=== PATIENT | male | born 1960 | race African-American/Black ===

== ENCOUNTER 2022-11-03 14:26 | Outpatient (CLI) | payer OTHER | END 2022-11-03 14:27 | disposition home or self-care (01) | LOC: SCSRAD 14:26 | PROVIDERS: ATTEND Family Medicine | DX: M54.16 Radiculopathy, lumbar region (principal) | CPT/HCPCS: 72100 ==

== ENCOUNTER 2022-11-19 07:59 | Outpatient (CLI) | payer OTHER | END 2022-11-19 08:00 | disposition home or self-care (01) | LOC: SCSMRI 07:59 | PROVIDERS: ATTEND Specialist | DX: M51.17 Intervertebral disc disorders with radiculopathy, lumbosacral region (principal); M47.816 Spondylosis without myelopathy or radiculopathy, lumbar region; M51.36 Other intervertebral disc degeneration, lumbar region; M25.78 Osteophyte, vertebrae; M51.37 Other intervertebral disc degeneration, lumbosacral region; M48.07 Spinal stenosis, lumbosacral region | CPT/HCPCS: 72148 ==

== ENCOUNTER 2024-03-14 15:24 | Outpatient (CLI) | payer OTHER | END 2024-03-14 15:25 | disposition home or self-care (01) | LOC: SCSRAD 15:24 | PROVIDERS: ATTEND Family Medicine | DX: Z01.818 Encounter for other preprocedural examination (principal) | CPT/HCPCS: 71046 ==